=== PATIENT | female | born 1960 | race Caucasian/White ===

== ENCOUNTER 2021-02-28 10:06 | Inpatient (IN) ==
[2021-02-28] MEDS ORDERED: dexAMETHasone**PF** 10 MG/ML VIAL IV ONE (11:05)
[2021-02-28] MEDS ORDERED: SODIUM CHLORIDE 0.9% 500 ML IV STA (11:05)
--- NOTE | 2021-02-28 11:36 | XRay Report ---
XR chest 1V portable CLINICAL HISTORY: Dyspnea, hypoxia, +COVID x 12d. COMPARISON STUDY: 02/24/2021 TECHNIQUE: 1 view of the chest FINDINGS: Single frontal view of the chest demonstrates the cardiomediastinal silhouette to be within normal li mits. Compared to the previous examination, there is worsening patchy interstitial and alveolar opaci ties bilaterally. Findings are characteristic of a viral type pneumonitis and early Covid pneumonia. There is no evidence for pleural effusion. There is no evidence for vascular congestion. There is no acute osseous pathology. IMPRESSION: Compared to the previous examination, there is worsening patchy interstitial and alveolar opacities bilaterally. Findings are characteristic of a viral type pneumonitis and early Covid pneum onia. ACT 112: Negative or not required by law. Electronically signed by: Quincy David M.D. 02/28/2021 11:35 AM
[2021-02-28 12:17] LABS: Hematocrit (blood only) 39.7 % (37-47); Hemoglobin 13.2 g/dL (12.0-16.0); Mean Corpuscular Hemoglobin 29.2 pg (25-34); Mean Corpuscular Hgb Conc 33.2 g/dL (32-36); Mean Corpuscular Volume 87.8 fL (80-100); Mean Platelet Volume 10.6 fL (7.4-10.4); Platelet Count 318 K/uL (130-400); RDW Coefficient of Variation 13.8 % (11.5-14.5); RDW Standard Deviation 44.4 fL (36.4-46.3); Red Blood Count 4.52 M/uL (4.2-5.4); White Blood Count 12.71 K/uL (4.8-10.8)
[2021-02-28 12:35] LABS: Alanine Aminotransferase 34 U/L (12-78); Albumin Level 2.5 gm/dl (3.4-5.0); Aspartate Aminotransferase 17 U/L (15-37); BUN Creatinine Ratio 24.7 (10-20); Blood Urea Nitrogen 19 mg/dl (7-18); Calcium 8.7 mg/dl (8.5-10.1); Carbon Dioxide 23 mmol/L (21-32); Chloride 106 mmol/L (98-107); Creatinine Clr Calc Pharmacy 89.6 ml/min; Est GFR (African American) 100.4 ml/min; Est GFR (Non-African American) 86.6 ml/min; Glucose 111 mg/dl (70-99); Potassium 3.2 mmol/L (3.5-5.1); Sodium 140 mmol/L (136-145)
[2021-02-28 12:39] LABS: Albumin Globulin Ratio 0.5 (0.9-2); Alkaline Phosphatase 53 U/L (45-117); Bilirubin,Total 0.3 mg/dl (0.2-1); Globulin 4.8 gm/dl (2.5-4.0); NT Pro B Type Natriuretic Pept 553 pg/ml (0-900); Total Protein 7.3 gm/dl (6.4-8.2); Troponin I < 0.015 ng/ml (0-0.045)
[2021-02-28 12:45] LABS: Basophils # (auto) 0.06 K/uL (0-0.2); Basophils % (auto) 0.5 %; Eosinophils # (auto) 0.01 K/uL (0-0.5); Eosinophils % (auto) 0.1 %; Immature Granulocytes % (auto) 3.9 %; Lymphocytes % (auto) 14.9 %; Monocytes # (auto) 1.24 K/uL (0.11-0.59); Monocytes % (auto) 9.8 %; Neutrophils % (auto) 70.8 %
--- NOTE | 2021-02-28 13:39 | History & Physical Report ---
Date of Service February 28, 2021 Assessment & Plan (1) COVID-19: Plan: Fully vaccinated but has not had booster. Sister with severe disease requiring 3 month hospitalization with intubation however was unvaccinated. Dexamethasone 6mg IV Incentive spirometry Encourage pronation (2) Hypoxia: Plan: Aim O2 sats > 90% Plan: VTE Prophylaxis - Lovenox 40mg SQ daily Diet - Regular Disposition - admit to med/surg Admission and Anticipated Discharge Date Admission Date: February 28, 2021 History of Present Illness Chief Complaint: Shortness of breath and hypoxia Primary Care Provider: Gabriel Maradiaga Estella Lombardo is a 60 year old female who presents to the ER with shortness of breath and hypoxia. She reports her symptoms started 12 days ago. Initially with fever and headache. She presented to the ER here on February 24 with O2 sats 91-93% at rest therefore was started on dexamethasone and azithromycin. She reports her fever has been persistent and she was told if increasing shortness of breath and hypoxia she should come back to the ER. Yesterday O2 sats 88-89% but this morning it was down to 85% therefore decided to come back to the ER. Associated loss of appetite. She is vaccinated with Moderna in June/July but not yet had her booster. She reports her sister was severely sick without being vaccinated last year spending 3 months in hospital and now has chronic lung problems and PTSD. She denies any chest pain, abdominal pain, diarrhea, She is currently stable maintaining O2 sats > 94% on 3LPM O2. She was referred to medicine for admission and ongoing management of COVID-19 pneumonia. Allergies Allergy/AdvReac Type Severity Reaction Status Date / Time No Known Allergies Verified 02/28/21 13:15 Home Medications Medication Instructions Recorded Confirmed Type dexamethasone 6 mg tablet 6 mg PO DAILY #10 tab 02/24/21 02/28/21 Rx venlafaxine 37.5 mg 37.5 mg PO DAILY 02/24/21 02/28/21 History capsule,extended release 24 hr azithromycin 250 mg tablet 250 mg PO DAILY 02/28/21 02/28/21 History latanoprost 0.005 % eye drops 1 drp OPB DAILY 02/28/21 02/28/21 History Past Med/Surg History Medical History No pertinent past medical history Surgical History History of cholecystectomy Social History (Updated 02/28/21 @ 14:58 by Sheldon Rodriguez) Smoking Status: Never smoker Preferred Language: Tuvaluan marital status: Current Living Situation: Spouse and Family current occupational status: employed Feels Safe at Home: Yes Assistive Devices: Glasses and Oxygen - Continuous Review of Systems Review of Systems: All systems reviewed & are unremarkable except as noted in HPI & below Physical Exam Constitutional: WD/WN, vitals as above Eyes: + anicteric sclerae; normal pupil size ENMT: external ear and nose normal, oropharynx normal Respiratory: normal respiratory effort; no respiratory distress Auscultation: + diminished lung sounds (bases to mid zone); no crackles, no rales, no rhonchi and no wheezes Cardiovascular: RRR, no murmur, no edema Gastrointestinal (Abdomen): normal bowel sounds, soft, nontender, no hepatosplenomegaly Musculoskeletal: no cyanosis or clubbing, extremities motor strength 5/5 Skin: no rashes, warm and dry Neurologic: moves all extremities and awake; not confused Psychiatric: A+Ox3, euthymic affect Results & Data Results & Data ([facility]) Vital Signs (Past 12 Hours) Vital Signs Temp Pulse Pulse Resp BP BP Pulse Ox 02/28/21 12:11 61 16 95 02/28/21 12:06 63 20 133/86 94 02/28/21 10:10 36.4 C L 74 20 149/84 H 89 L Diagnostic Findings XR chest 1V portable CLINICAL HISTORY: Dyspnea, hypoxia, +COVID x 12d. COMPARISON STUDY: 02/24/2021 TECHNIQUE: 1 view of the chest FINDINGS: Single frontal view of the chest demonstrates the cardiomediastinal silhouette to be within normal limits. Compared to the previous examination, there is worsening patchy interstitial and alveolar opacities bilaterally. Findings are characteristic of a viral type pneumonitis and early Covid pneumonia. There is no evidence for pleural effusion. There is no evidence for vascular congestion. There is no acute osseous pathology. IMPRESSION: Compared to the previous examination, there is worsening patchy interstitial and alveolar opacities bilaterally. Findings are characteristic of a viral type pneumonitis and early Covid pneumonia. Medications Administered ER Medications Given: Dexamethasone 6mg IV ECG Indication: SOB/dyspnea Rate (beats per minute): 62 Rhythm: normal sinus Findings: no acute ischemic change Comparison ECG Date: no prior available Code Status & VTE Plan Code Status Full VTE Prophylaxis Plan VTE Prophylaxis will be ordered: Yes PG Care Time/CCT Total # of Minutes Spent Total Time Spent with Patient: Total time spent is greater than 50% in coordination of care (as documented) at patient's floor/unit and/or counseling patient: Coding Level of Care Code 30834 Initial Inpt Care Lvl 2 Diagnoses COVID-19 U07.1 Hypoxia R09.02
[2021-02-28] MEDS ORDERED: AZITHROMYCIN 250 MG TAB PO STA (13:40)
--- NOTE | 2021-02-28 15:04 | Emergency Department Note ---
History of Present Illness General Chief complaint: Shortness of Breath/Dyspnea Stated complaint: COVID +, SOB Time Seen by Provider: 02/28/21 10:58 History of Present Illness 60-year-old female who presents to the emergency department for with complaint of worsening Covid symptoms, including productive cough and shortness of breath. The patient reports that she has had symptoms now for approximately 12 days. The patient was seen in our emergency department on 02/24/2021 with a positive COVID-19 test. She was discharged with a prescription for dexamethasone and azithromycin. The patient reports that her O2 saturation at home was 87%. Home Medications Medication Instructions Recorded Confirmed Type dexamethasone 6 mg tablet 6 mg PO DAILY #10 tab 02/24/21 02/28/21 Rx venlafaxine 37.5 mg 37.5 mg PO DAILY 02/24/21 02/28/21 History capsule,extended release 24 hr azithromycin 250 mg tablet 250 mg PO DAILY 02/28/21 02/28/21 History latanoprost 0.005 % eye drops 1 drp OPB DAILY 02/28/21 02/28/21 History Allergies Allergy/AdvReac Type Severity Reaction Status Date / Time No Known Allergies Verified 02/28/21 13:15 Past Med/Surg History Medical History No pertinent past medical history Surgical History History of cholecystectomy Social History (Updated 02/28/21 @ 14:58 by Sheldon Rodriguez) Smoking Status: Never smoker Preferred Language: Monegasque marital status: Current Living Situation: Spouse and Family current occupational status: employed Feels Safe at Home: Yes Review of Systems 10 system review was performed and was negative except for pertinent positives and negatives as indicated in history of present illness Physical Exam Vital Signs Vital Signs - 24 hr 02/28/21 10:10 02/28/21 12:06 02/28/21 12:11 Temperature 36.4 C L Temperature Source Oral Pulse Rate 74 61 Pulse Rate [Apical] 63 Pulse Rate from SpO2 Sensor 63 Respiratory Rate 20 20 16 Respiratory Effort / Characteristics Non-Labored Spontaneous Respiratory Depth Normal Blood Pressure 149/84 H Blood Pressure [Right Arm] 133/86 Blood Pressure Mean 105 Blood Pressure Mean [Right Arm] 101 Blood Pressure Position Sitting Pulse Oximetry 89 L 94 95 Oxygen Delivery Method Room Air Nasal Cannula Sepsis Recent Fever Within 48 Hours Yes Sepsis New/Unexplained Change in Mental Status N/A Sepsis Action Taken by Nursing No Action Required 02/28/21 12:27 02/28/21 12:30 02/28/21 13:00 Temperature Temperature Source Pulse Rate 64 61 Pulse Rate [Apical] Pulse Rate from SpO2 Sensor 64 62 Respiratory Rate 25 H 17 Respiratory Effort / Characteristics Respiratory Depth Blood Pressure Blood Pressure [Right Arm] Blood Pressure Mean Blood Pressure Mean [Right Arm] Blood Pressure Position Pulse Oximetry 94 93 Oxygen Delivery Method Nasal Cannula Sepsis Recent Fever Within 48 Hours Sepsis New/Unexplained Change in Mental Status Sepsis Action Taken by Nursing CONSTITUTIONAL: Healthy and well nourished. Patient does not appear toxic. HEENT: No scleral icterus or conjunctival injection. RESPIRATORY: Clear to auscultation bilaterally with no wheezing, crackles, rhonchi or stridor. CARDIOVASCULAR: Regular rate and rhythm with no murmurs, rubs or gallops. GASTROINTESTINAL: Bowel sounds present in all quadrants. Soft and nontender to palpation. MUSCULOSKELETAL: Full range of motion of all joints without discomfort. INTEGUMENTARY: No rash or other significant dermatologic conditions noted. HEMATOLOGIC: No ecchymosis or petechiae. PSYCHIATRIC: Positive affect. NEUROLOGIC: No focal neurologic deficits noted. Course Course Patient history and physical exam were performed. Nurses notes were reviewed. Vital signs were reviewed from triage, showing an O2 saturation of 89% on room air. The patient was not febrile, tachycardic or hypotensive. I also reviewed prior documentation from the patient's last ED visit. IV access was established, and labs were drawn. The patient was hydrated with a liter normal saline, and administered IV Decadron. Review of labs shows a moderate leukocytosis with left shift and bandemia. The patient is hypokalemic at 3.2. Creatinine, LFTs, troponin, BNP and procalcitonin are normal. Portable chest x- ray does show a slightly worsening pneumonia pattern. The case was further discussed with the [facility] Hospitalist service (Dr. Gee), who agrees with admission. Please see his dictation for further treatment and final disposition. Administered Medications Discontinued Medications Azithromycin (Azithromycin 250 Mg Tab) 250 mg PO NOW STA Stop: 02/28/21 13:41 Last Admin: 02/28/21 14:24 Dose: 250 mg Documented by: [id number] Dexamethasone Sodium Phosphate (DexamethasonePf 10 Mg/Ml Vial) 10 mg IV NOW ONE Stop: 02/28/21 11:06 Last Admin: 02/28/21 12:12 Dose: 10 mg Documented by: [id number] Sodium Chloride (Nss) 500 mls @ 999 mls/hr IV .Q31M STA Stop: 02/28/21 11:35 Last Infusion: 02/28/21 12:43 Dose: 0 mls/hr Documented by: [id number] Admin: 02/28/21 12:12 Dose: 999 mls/hr Documented by: [id number] Medical Decision Making Medical Records Attestation: I reviewed the patient's medical records. Home Medications Current Medication List: was personally reviewed by me Laboratory Data Attestation: I reviewed the patient's lab results. Result diagrams: 02/28/21 12:05 02/28/21 12:05 Lab Results 02/28/21 02/28/21 02/28/21 Range/Units 12:05 12:05 12:05 WBC 12.71 H (4.8-10.8) K/uL RBC 4.52 (4.2-5.4) M/uL Hgb 13.2 (12.0-16.0) g/dL Hct 39.7 (37-47) % MCV 87.8 (80-100) fL MCH 29.2 (25-34) pg MCHC 33.2 (32-36) g/dL RDW Std Deviation 44.4 (36.4-46.3) fL RDW Coeff of Brennan 13.8 (11.5-14.5) % Plt Count 318 (130-400) K/uL MPV 10.6 H (7.4-10.4) fL Immature Gran % (Auto) 3.9 % Neut % (Auto) 70.8 % Lymph % (Auto) 14.9 % [place] % (Auto) 9.8 % Eos % (Auto) 0.1 % Baso % (Auto) 0.5 % Neut # (Auto) 9.00 H (1.4-6.5) K/uL Lymph # (Auto) 1.90 (1.2-3.4) K/uL [place] # (Auto) 1.24 H (0.11-0.59) K/uL Eos # (Auto) 0.01 (0-0.5) K/uL Baso # (Auto) 0.06 (0-0.2) K/uL Immature Gran # (Auto) 0.50 H (0.00-0.02) K/uL Sodium 140 (136-145) mmol/L Potassium 3.2 L (3.5-5.1) mmol/L Chloride 106 (98-107) mmol/L Carbon Dioxide 23 (21-32) mmol/L Anion Gap 11.0 (3-11) BUN 19 H (7-18) mg/dl Creatinine 0.75 (0.6-1.2) mg/dl Est Cr Clr Drug Dosing 89.6 ml/min Est GFR ( Amer) 100.4 ml/min Est GFR (Non-Af Amer) 86.6 ml/min BUN/Creatinine Ratio 24.7 H (10-20) Glucose 111 H (70-99) mg/dl Calcium 8.7 (8.5-10.1) mg/dl Total Bilirubin 0.3 (0.2-1) mg/dl AST 17 (15-37) U/L ALT 34 (12-78) U/L Alkaline Phosphatase 53 (45-117) U/L Troponin I < 0.015 (0-0.045) ng/ml C-Reactive Protein 3.41 H (0-0.29) mg/dl NT-Pro-B Natriuret Pep 553 (0-900) pg/ml Total Protein 7.3 (6.4-8.2) gm/dl Albumin 2.5 L (3.4-5.0) gm/dl Globulin 4.8 H (2.5-4.0) gm/dl Albumin/Globulin Ratio 0.5 L (0.9-2) Imaging Data Attestation: I personally reviewed and interpreted this imaging study as follows: My Impression: My interpretation of a portable chest x-ray shows a worsening pneumonia pattern when compared to her prior chest x-ray of 02/24/2021. Radiologist report was also reviewed. Radiologist's Impression: Chest X-Ray 02/28/21 11:05 XR chest 1V portable CLINICAL HISTORY: Dyspnea, hypoxia, +COVID x 12d. COMPARISON STUDY: 02/24/2021 TECHNIQUE: 1 view of the chest FINDINGS: Single frontal view of the chest demonstrates the cardiomediastinal silhouette to be within normal limits. Compared to the previous examination, there is worsening patchy interstitial and alveolar opacities bilaterally. Findings are characteristic of a viral type pneumonitis and early Covid pneumonia. There is no evidence for pleural effusion. There is no evidence for vascular congestion. There is no acute osseous pathology. IMPRESSION: Compared to the previous examination, there is worsening patchy interstitial and alveolar opacities bilaterally. Findings are characteristic of a viral type pneumonitis and early Covid pneumonia. ACT 112: Negative or not required by law. Electronically signed by: Quincy David M.D. 02/28/2021 11:35 AM Blood Pressure Blood Pressure Findings: Normal blood pressure MDM Narrative Patient appears to have progressively worsening symptoms secondary to COVID-19 upper respiratory infection. Patient is also now hypoxic. I do feel that the patient warrants hospitalization for further management. ECG was normal, and troponin is not suggestive of major cardiac event. Other than a mild hypokalemia, no other significant nitrite abnormalities are noted. BNP is also normal, therefore I do not suspect CHF. Impression & Plan Hypoxia, COVID-19 virus infection, Acute hypokalemia Discharge Plan Visit Data Chief Complaint: Shortness of Breath/Dyspnea Stated Complaint: COVID +, SOB ED Midlevel Provider: Sheldon Rodriguez Discharge Problem: Hypoxia, COVID-19 virus infection, Acute hypokalemia Patient Disposition: Admitted As Inpatient Discharge Instructions Interventions: ED Discharge Assessment Last Done: 02/28/21 16:15
[2021-02-28] MEDS ORDERED: POLYETHYLENE (MIRALAX) 17 GM PACK PO PRN (16:41)
[2021-02-28] MEDS ORDERED: ACETAMINOPHEN 325 MG TAB PO PRN (16:41)
[2021-02-28] MEDS ORDERED: ONDANSETRON INJ 2 MG/ML 2 ML VIAL IV PRN (16:41)
[2021-02-28] MEDS: ENOXAPARIN INJ 40 MG/0.4 ML SYR SQ SCH (21:10)
[2021-03-01 03:28] LABS: Appearance Urine Clear (Clear); Bilirubin Urine Negative (Negative); Blood Urine Negative (Negative); Color Urine Yellow; Glucose Urine UA Negative (Negative); Ketones Urine Negative (Negative); Leukocyte Esterase Urine Negative (Negative); Nitrite Urine Negative (Negative); Protein Urine Negative (Negative); Specific Gravity Urine 1.028 (1.000-1.030); Urobilinogen Urine Negative (Negative)
--- NOTE | 2021-03-01 06:53 | Electrocardiogram Report ---
Test Reason : Blood Pressure : / mmHG Vent. Rate : 062 BPM Atrial Rate : 062 BPM P-R Int : 144 ms QRS Dur : 084 ms QT Int : 422 ms P-R-T Axes : 064 055 043 degrees QTc Int : 428 ms Normal sinus rhythm Normal ECG No previous ECGs available Confirmed by Sulaiman Wright ([id number]) on 03/01/2021 6:52:55 AM Referred By: REFERRED SELF Confirmed By:Sulaiman Wright
[2021-03-01 07:27] LABS: BUN Creatinine Ratio 27.4 (10-20); Calcium 8.6 mg/dl (8.5-10.1); Creatinine Clr Calc Pharmacy 94.7 ml/min; Est GFR (African American) 107.3 ml/min; Est GFR (Non-African American) 92.6 ml/min
[2021-03-01] MEDS ORDERED: dexAMETHasone 6 MG in SYRINGE 0 ML IV SCH (09:00)
[2021-03-01] MEDS ORDERED: LATANOPROST 0.005% OP SOLN 2.5 ML BTL OPB SCH ×2 (09:00→21:00)
[2021-03-01] MEDS ORDERED: VENLAFAXINE HCL XR 37.5 MG CAPXR PO SCH ×2 (09:00→21:00)
[2021-03-01] MEDS ORDERED: Nursing to Pharmacy Communication SCH (09:30)
--- NOTE | 2021-03-01 14:11 | Hospitalist Progress Note ---
Date of Service March 01, 2021 Assessment & Plan (1) COVID-19: Plan: Fully vaccinated but had not had booster. Sister with severe disease requiring 3 month hospitalization with intubation however was unvaccinated. - Not candidate for remdesivir and presently not tocilizumab either - Dexamethasone 6mg PO daily x 10 days - Supplemental O2 PRN for SpO2 > 90% - Incentive spirometry - Encouraged pronation (2) Hypoxia: Plan: Aim O2 sats > 90% (3) Depression: Plan: - Continue venlafaxine (4) DVT prophylaxis: Plan: Lovenox 40 mg SQ QPM Admission and Anticipated Discharge Date Admission Date: February 28, 2021 Subjective Doing better today. Less shortness of breath. Reports no fevers/chills, chest pain, abdominal pain, nausea, or vomiting. Physical Exam Constitutional: WD/WN, vitals as above Eyes: EOM intact bilaterally; no conjunctival abnormality ENMT: external ear and nose normal, oropharynx normal Neck: trachea midline, no thyromegaly normal visual inspection Respiratory: normal respiratory effort, lungs clear to auscultation no respiratory distress Cardiovascular: RRR, no murmur, no edema Gastrointestinal (Abdomen): Inspection/Auscultation: abdomen normal to inspection; abdomen not distended Musculoskeletal: no cyanosis or clubbing, extremities motor strength 5/5 Skin: no rashes, warm and dry Neurologic: moves all extremities and awake Psychiatric: Orientation: alert, oriented to person and cooperative Results & Data Results & Data ([facility]) Vital Signs (Past 12 Hours) Vital Signs Temp Pulse Resp BP Pulse Ox 03/01/21 08:30 36.6 C 71 18 138/88 91 PG Care Time/CCT Total # of Minutes Spent Total Time Spent with Patient: Total time spent is greater than 50% in coordination of care (as documented) at patient's floor/unit and/or counseling patient: Coding Level of Care Code 34848 Subseq Hosp Care Lvl 3 Diagnoses COVID-19 U07.1 Hypoxia R09.02 Depression F32.A DVT prophylaxis Z29.9
[2021-03-01] MEDS: ENOXAPARIN INJ 40 MG/0.4 ML SYR SQ SCH (20:20)
[2021-03-02 07:00] LABS: Hemoglobin 13.1 g/dL (12.0-16.0); Mean Corpuscular Hemoglobin 29.6 pg (25-34); Mean Corpuscular Hgb Conc 33.6 g/dL (32-36); Mean Corpuscular Volume 88.2 fL (80-100); Mean Platelet Volume 10.8 fL (7.4-10.4); Platelet Count 404 K/uL (130-400); RDW Coefficient of Variation 13.7 % (11.5-14.5); RDW Standard Deviation 44.6 fL (36.4-46.3); Red Blood Count 4.42 M/uL (4.2-5.4); White Blood Count 12.84 K/uL (4.8-10.8)
[2021-03-02 07:26] LABS: BUN Creatinine Ratio 23.7 (10-20); Calcium 8.4 mg/dl (8.5-10.1); Creatinine Clr Calc Pharmacy 85.1 ml/min; Est GFR (African American) 94.3 ml/min; Est GFR (Non-African American) 81.4 ml/min; Potassium 3.6 mmol/L (3.5-5.1)
[2021-03-02 07:27] LABS: Magnesium 2.2 mg/dl (1.8-2.4)
[2021-03-02] MEDS ORDERED: dexAMETHasone 4 MG TAB PO SCH (09:00)
--- NOTE | 2021-03-02 17:32 | Discharge Summary ---
Date of Service March 02, 2021 Admission HPI Per Admitting Provider Estella Lombardo is a 60 year old female who presents to the ER with shortness of breath and hypoxia. She reports her symptoms started 12 days ago. Initially with fever and headache. She presented to the ER here on February 24 with O2 sats 91-93% at rest therefore was started on dexamethasone and azithromycin. She reports her fever has been persistent and she was told if increasing shortness of breath and hypoxia she should come back to the ER. Yesterday O2 sats 88-89% but this morning it was down to 85% therefore decided to come back to the ER. Associated loss of appetite. She is vaccinated with Moderna in June/July but not yet had her booster. She reports her sister was severely sick without being vaccinated last year spending 3 months in hospital and now has chronic lung problems and PTSD. She denies any chest pain, abdominal pain, diarrhea, She is currently stable maintaining O2 sats > 94% on 3LPM O2. She was referred to medicine for admission and ongoing management of COVID-19 pneumonia. Principal Diagnosis Covid-19 pneumonia Discharge Exam Constitutional WD/WN, vitals as above Eyes EOM intact bilaterally; no conjunctival abnormality ENMT external ear and nose normal, oropharynx normal Neck trachea midline, no thyromegaly normal visual inspection Respiratory normal respiratory effort, lungs clear to auscultation no respiratory distress Cardiovascular RRR, no murmur, no edema Gastrointestinal (Abdomen) Inspection/Auscultation: abdomen normal to inspection; abdomen not distended Musculoskeletal no cyanosis or clubbing, extremities motor strength 5/5 Skin no rashes, warm and dry Neurologic moves all extremities and awake Psychiatric Orientation: alert, oriented to person and cooperative Discharge Data Allergies Allergy/AdvReac Type Severity Reaction Status Date / Time No Known Allergies Verified 02/28/21 13:15 Hospital Course (1) COVID-19: Fully vaccinated but had not had booster. Sister with severe disease requiring 3 month hospitalization with intubation however was unvaccinated. - Not candidate for remdesivir and presently not tocilizumab either - Dexamethasone 6mg PO daily x 10 days - Supplemental O2 PRN for SpO2 > 90% - Incentive spirometry - Encouraged pronation - Did well. By discharge, she had a two step that did not show any need for home O2. Encouraged to finish her 10-day dexamethasone course. (2) Hypoxia: Aim O2 sats > 90% (3) Depression: - Continue venlafaxine (4) DVT prophylaxis: Lovenox 40 mg SQ QPM Total Time Total Time Spent Total Time Spent (In Minutes): 35 Discharge Plan Discharge Items Patient Disposition: Home - Self-Care Reason For Visit: COVID-19 PNEUMONIA, HYPOXIA Discharge Diagnosis: Covid-19 pneumonia Activity: Resume your previous activity Non-emergency contact: Primary Care Provider Call non-emergency contact if: your symptoms worsen Follow-up/Referrals: Gabriel Maradiaga [Primary Care Provider] - Diet: Regular Addtl Attending Provider Instructions: Ms. Lombardo, You were admitted to the hospital with Covid-19 pneumonia. You needed some oxygen for a short while, but luckily, you were already off it by discharge. Please take the dexamethasone you have at home until Friday, then you can stop. Take it easy the next week until you are fully better. Pending Studies at Discharge: No Stand-Alone Forms: My [facility], Work/School Release, Smoking Cessation Medications and DC Order Prescriptions: Continued venlafaxine 37.5 mg capsule,extended release 24hr 37.5 mg PO DAILY RF: 0 dexamethasone 6 mg tablet 6 mg PO DAILY Qty: 10 RF: 0 latanoprost 0.005 % drops 1 drp OPB DAILY RF: 0 Discontinued azithromycin 250 mg tablet 250 mg PO DAILY RF: 0 Discharge Orders: Discharge Order (Routine); Ordered 03/02/21 Ordered By: Carlos Michael/Other Patient Handouts: COVID-19 Home Care Admission Data Admit Date/Time: 02/28/21 13:19 Attending Provider: Carlos Lewis Admit Provider: Sergio Gee Primary Care Provider: Gabriel Maradiaga Other Interventions: Discharge Summary Assessment (RN) Last Done: 03/02/21 12:26 Coding Level of Care Code D/C DAY MANAGEMENT >30 MINS Diagnoses COVID-19 U07.1 Hypoxia R09.02 Depression F32.A DVT prophylaxis Z29.9
== END 2021-03-02 14:24 | disposition home or self-care (01) | DRG 177 ==
LOC: ED 10:06 → SUATTDRO 13:19 → 3W 13:19